=== PATIENT | male | born 1980 ===

== ENCOUNTER 2016-07-13 11:00 | Emergency (ER) | payer SELFPAY ==
[2016-07-13 11:52] VITALS: BP 115/75
--- NOTE | 2016-07-14 14:00 | ED Elopement Review ---
ED Pt Elopement review - Call Back decision Pt Call Back Decision: Pt to F/U with PMD
== END 2016-07-13 16:58 | disposition left against medical advice (07) ==
LOC: ED 11:00
DX: R07.81 Pleurodynia (principal); M54.9 Dorsalgia, unspecified; Z87.891 Personal history of nicotine dependence; V89.2XXA Person injured in unspecified motor-vehicle accident, traffic, initial encounter; Y93.89 Activity, other specified; Y99.9 Unspecified external cause status; Y92.410 Unspecified street and highway as the place of occurrence of the external cause; Z53.21 Procedure and treatment not carried out due to patient leaving prior to being seen by health care provider